=== PATIENT | female | born 1960 | race Caucasian/White ===

== ENCOUNTER → 2017-07-21 | Outpatient (CLI) | payer BC ==
[2017-07-21 13:51] LABS: INTERNATIONAL RATION (INR) 0.93; PROTHROMBIN TIME 12.9 SEC (11.4-15.4)
[2017-07-21 14:15] LABS: ALANINE AMINOTRANSFERASE 54 U/L (9-52); ALBUMIN 4.1 g/dL (3.5-5.0); ALKALINE PHOSPHATASE 97 U/L (38-126); ASPARTATE AMINO TRANSFERASE 35 U/L (14-36); BILIRUBIN,DIRECT 0.3 mg/dL (0.0-0.4); BILIRUBIN,TOTAL 0.4 mg/dL (0.2-1.3); TOTAL PROTEIN 7.3 g/dL (6.3-8.2)
[2017-07-22 07:36] LABS: HEPATITIS B SURFACE AB QUANT <3.1 mIU/mL (Immunity>9.9)
[2017-07-23 06:39] LABS: HCV FIBROSURE ALT P5P 44 IU/L (0-40); HCV FIBROSURE GGT 18 IU/L (0-60); HCV FIBROSURE HAPTOGLOBIN 102 mg/dL (34-200); NECROINFLAM ACTIVITY GRADE A0-A1 (.); NECROINFLAMM ACTIVITY SCORE 0.22 (0.00-0.17)
[2017-07-23 09:40] LABS: HEPATITIS C QUANTITATION HCV Not Detected IU/mL (.)
== END ==
LOC: OD 12:32
PROVIDERS: ATTEND Internal Medicine Gastroenterology
DX: B18.2 Chronic viral hepatitis C (principal)
CPT/HCPCS: 36415; 80076; 81270; 82172; 82247; 82977; 83010; 83883; 84460; 85610; 86317; 86701; 87522

== ENCOUNTER 2019-12-04 05:39 | Day surgery (SDC) | payer BC ==
[2019-11-29 12:39] LABS: HEMOGLOBIN 13.2 g/dL (12.0-15.5); MEAN CORPUSCULAR HGB CONC 33.9 g/dL (32.0-36.0); MEAN CORPUSCULAR VOLUME 92 fl (80-97); PLATELET COUNT 127 10^3/uL (150-450); RED BLOOD COUNT 4.26 10^6/uL (3.72-5.28); RED CELL DISTRIBUTION WIDTH 16.5 % (11.5-14.0); WHITE BLOOD COUNT 4.3 10^3/uL (4.0-10.5)
--- NOTE | 2019-11-29 12:41 | RADIOLOGY REPORT (SQ) ---
EXAM DESCRIPTION: CHEST PA/LATERAL IMAGES COMPLETED DATE/TIME: 11/29/2019 12:33 pm REASON FOR STUDY: PRE-OP COMPARISON: 11/15/2018 EXAM PARAMETERS: NUMBER OF VIEWS: two views TECHNIQUE: Digital Frontal and Lateral radiographic views of the chest acquired. RADIATION DOSE: NA LIMITATIONS: none FINDINGS: LUNGS AND PLEURA: No opacities, masses or pneumothorax. No pleural effusion. MEDIASTINUM AND HILAR STRUCTURES: No masses or contour abnormalities. HEART AND VASCULAR STRUCTURES: Heart normal size. No evidence for failure. BONES: No acute findings. HARDWARE: None in the chest. OTHER: No other significant finding. IMPRESSION: NO SIGNIFICANT RADIOGRAPHIC FINDING IN THE CHEST. TECHNICAL DOCUMENTATION: JOB ID: [id number] 2010 [employer]- All Rights Reserved Reading location - IP/workstation name: [email or web address]
[2019-11-29 12:45] LABS: APPEARANCE,URINE SLIGHTLY-CLOUDY; BILIRUBIN,URINE NEGATIVE (NEGATIVE); COLOR,URINE YELLOW; GLUCOSE, URINE >=500 mg/dL (NEGATIVE); KETONES,URINE NEGATIVE (NEGATIVE); LEUKOCYTE ESTERASE,URINE NEGATIVE (NEGATIVE); NITRITE,URINE NEGATIVE (NEGATIVE); PROTEIN,URINE NEGATIVE (NEGATIVE); URINE SPECIFIC GRAVITY 1.016; UROBILINOGEN,URINE NEGATIVE mg/dL (<2.0)
[2019-11-29 13:10] LABS: ALBUMIN 4.5 g/dL (3.5-5.0); ALKALINE PHOSPHATASE 101 U/L (38-126); ANION GAP 11 (5-19); ASPARTATE AMINO TRANSFERASE 50 U/L (14-36); BILIRUBIN,DIRECT 0.3 mg/dL (0.0-0.4); BILIRUBIN,TOTAL 0.4 mg/dL (0.2-1.3); BLOOD UREA NITROGEN 25 mg/dL (7-20); CALCIUM 9.7 mg/dL (8.4-10.2); CARBON DIOXIDE 28 mmol/L (22-30); CHLORIDE 102 mmol/L (98-107); GLUCOSE 119 mg/dL (75-110); POTASSIUM 4.1 mmol/L (3.6-5.0); TOTAL PROTEIN 8.1 g/dL (6.3-8.2)
--- NOTE | 2019-11-29 14:44 | EKG REPORT ---
SEVERITY:- BORDERLINE ECG - SINUS RHYTHM LOW VOLTAGE THROUGHOUT : Confirmed by: Holley Hatch MD 29-Nov-2019 14:42:49
[~2019-12-04 05:39] MED LIST: CEFAZOLIN 2 GM/D5W RTU 2 GM/50 ML RTUPB IV PRN
[2019-12-04] MEDS ORDERED: CEFAZOLIN 2 GM/D5W RTU 2 GM/50 ML RTUPB IV ONE (05:52)
[2019-12-04] MEDS ORDERED: MIDAZOLAM 2 MG/2 ML INJ ONE (06:49)
[2019-12-04] MEDS ORDERED: FENTANYL CITRATE INJ/PF 250 MCG/5 ML AMPULE ONE (06:49)
[2019-12-04] MEDS ORDERED: PROPOFOL INJ 200 MG/20 ML VIAL IV ONE (06:50)
[2019-12-04] MEDS ORDERED: HYDROMORPHONE HCL INJ/PF 2 MG/ML AMPULE ONE (06:50)
[2019-12-04] MEDS ORDERED: CEFAZOLIN INJ 1 GM VIAL ONE (07:58)
[2019-12-04] MEDS ORDERED: MEPERIDINE HCL/PF INJ 25 MG/1 ML DISP.SYRIN IV PRN (08:13)
[2019-12-04] MEDS ORDERED: PROMETHAZINE HCL INJ 25 MG/1 ML VIAL IV PRN ×2 (08:13)
[2019-12-04] MEDS ORDERED: FENTANYL CITRATE INJ/PF 100 MCG/2 ML AMPUL IV PRN ×3 (08:13)
[2019-12-04] MEDS ORDERED: DIPHENHYDRAMINE HCL 50 MG/ML VIAL IV PRN (08:13)
[2019-12-04] MEDS ORDERED: HYDROMORPHONE HCL INJ/PF 2 MG/ML AMPULE IV PRN (08:14)
[2019-12-04] MEDS ORDERED: OXYCODONE-ACETAMINOPHEN 5-325 MG TABLET PO PRN (09:40)
[2019-12-04] MEDS ORDERED: ONDANSETRON HCL 8 MG TABLET PO PRN (09:41)
--- NOTE | 2019-12-04 09:53 | Operative Report ---
Operative Report DATE OF SURGERY: 12/04/19 PREOPERATIVE DIAGNOSIS: PMB POSTOPERATIVE DIAGNOSIS: Same OPERATION: Robotic assisted total hysterectomy BSO SURGEON: PARISH SANCHEZ ANESTHESIA: GA TISSUE REMOVED OR ALTERED: Uterus tubes and ovaries COMPLICATIONS: None ESTIMATED BLOOD LOSS: Approximately 300 cc PROCEDURE: Placed in a dorsal lithotomy position and prepped and draped in the usual sterile fashion. Was placed cervix visualized grasped single-tooth tenaculum and a central sounded to a depth of 9 cm. The [employer] uterine manipulator was then placed per protocol. She turned to the abdomen where a supraumbilical incision was made trocar was introduced with insufflation the abdomen and visualization of the pelvis. And third punctures were made lateral to the first and 5 trochars introduced and an accessory port above the left iliac crest on the left. Robot was then docked in usual fashion. Monopolar bipolar cautery the left infundibulopelvic then divided and divided skinny down the broad ligament on the left. Patient was beat on the right. Flap was created with sharp blunt dissection. Uterosacral was then circumscribed using monopolar cautery. And ovaries were removed. Cuff was closed with running suture of 0 Vicryl. Robot was undocked. Puncture wounds previously made were all closed using 4-0 Vicryl. Small amount of bleeding was noted in the vaginal cuff and several [id number] sutures of 2-0 Vicryl were used for hemostasis. Stasis was noted. Procedure was terminated and she was taken to recovery in good condition.
[2019-12-04] MEDS ORDERED: FENTANYL CITRATE INJ/PF 100 MCG/2 ML AMPUL ONE (10:09)
[2019-12-04] MEDS ORDERED: ONDANSETRON 4 MG TAB.RAPDIS PO PRN (12:03)
[2019-12-04] MEDS ORDERED: IBUPROFEN 800 MG TABLET PO SCH ×2 (14:00→18:00)
[2019-12-04] MEDS ORDERED: ONDANSETRON HCL INJ/PF 4 MG/2 ML SDV ONE (14:44)
[2019-12-04] MEDS ORDERED: GLYCOPYRROLATE 1 MG/5 ML VIAL ONE (14:44)
[2019-12-04] MEDS ORDERED: SUCCINYLCHOLINE CHLORIDE INJ 200 MG/10 ML VIAL ONE (14:44)
[2019-12-04] MEDS ORDERED: PHENYLEPHRINE HCL INJ/PF 10 MG/1 ML SDV ONE (14:44)
[2019-12-04] MEDS ORDERED: NEOSTIGMINE METHYLSULFATE 10 MG/10 ML VIAL ONE (14:44)
[2019-12-04] MEDS ORDERED: ROCURONIUM BROMIDE INJ 50 MG/5 ML VIAL IV ONE (14:44)
[2019-12-04] MEDS ORDERED: DEXAMETHASONE SOD PHOSPHATE INJ 4 MG/1 ML VIAL ONE (14:44)
[2019-12-04] MEDS ORDERED: KETOROLAC TROMETHAMINE 60 MG/2 ML SDV ONE (14:44)
[2019-12-04] MEDS ORDERED: LIDOCAINE 2% INJ-PF (20 MG/ML) 2 ML AMPUL ONE (14:44)
[2019-12-04 17:28] VITALS: BP 108/59
[2019-12-04] MEDS ORDERED: METFORMIN HCL 500 MG TABLET PO SCH (18:00)
[2019-12-05] MEDS ORDERED: LOSARTAN POTASSIUM 50 MG TABLET PO SCH (10:00)
[2019-12-05] MEDS ORDERED: (PENDING PHARMACY ID) (Losartan Potassium [Losartan Potassium] 100 MG) PO SCH (10:00)
[2019-12-05] MEDS ORDERED: HYDROCHLOROTHIAZIDE 12.5 MG TABLET PO SCH (10:00)
[2019-12-05] MEDS ORDERED: (PENDING PHARMACY ID) (Empagliflozin [Jardiance] 25 MG) PO SCH (10:00)
== END 2019-12-04 19:00 | disposition home or self-care (01) ==
LOC: OROUT 05:39 → 2N 10:54 → OROUT 19:00
PROVIDERS: ATTEND Obstetrics & Gynecology Gynecology
DX: N95.0 Postmenopausal bleeding (principal); N72 Inflammatory disease of cervix uteri; N85.00 Endometrial hyperplasia, unspecified; N83.8 Other noninflammatory disorders of ovary, fallopian tube and broad ligament; Z03.818 Encounter for observation for suspected exposure to other biological agents ruled out; E11.9 Type 2 diabetes mellitus without complications; I10 Essential (primary) hypertension; Z79.84 Long term (current) use of oral hypoglycemic drugs; Z88.2 Allergy status to sulfonamides; Z88.5 Allergy status to narcotic agent; Z88.0 Allergy status to penicillin; Z88.1 Allergy status to other antibiotic agents; Z79.899 Other long term (current) drug therapy
CPT/HCPCS: 58571; S2900; 36415; 71046; 80053; 81001; 82962; 840; 85027; 86850; 86900; 86901; 87635; 88307; 88309; 93005; 93010; C1758; C9803; J0330; J0690; J1100; J1170; J1885; J2250; J2370; J2405; J2704; J2710; J3010; J3490; S0119